=== PATIENT | male | born 2000 | race African-American/Black ===

== ENCOUNTER 2024-12-30 11:49 | Emergency (ER) | payer OTHER ==
[~2024-12-30] VITALS: Ht 175.3 cm; Wt 81.2 kg
[2024-12-30 11:54] VITALS: BP 128/72; TEMP 96.5; O2SAT 100
[2024-12-30] MEDS ORDERED: IBUP-1022 PO (13:27)
== END 2024-12-30 13:42 | disposition home or self-care (01) ==
LOC: M ED 11:49
DX: S93.401A Sprain of unspecified ligament of right ankle, initial encounter (principal); M75.82 Other shoulder lesions, left shoulder; X58.XXXA Exposure to other specified factors, initial encounter; Y93.89 Activity, other specified; Y92.89 Other specified places as the place of occurrence of the external cause; Y99.1 Military activity

== ENCOUNTER 2025-02-22 15:35 | Emergency (ER) | payer OTHER ==
[~2025-02-22] VITALS: Ht 175.3 cm; Wt 83.3 kg
[~2025-02-22 15:35] MED LIST: IBUP-1022 PO
[2025-02-22] MEDS ORDERED: MELO15TA28 PO (20:59)
[2025-02-22 21:22] VITALS: BP 122/78; TEMP 96.7; O2SAT 100
== END 2025-02-22 21:24 | disposition home or self-care (01) ==
LOC: M ED 15:35
DX: M25.512 Pain in left shoulder (principal); Z79.1 Long term (current) use of non-steroidal anti-inflammatories (NSAID); Z79.899 Other long term (current) drug therapy